=== PATIENT | female | born 1950 | race Caucasian/White ===

== ENCOUNTER → 2016-10-27 | Day surgery (SDC) | payer OTHER ==
[2016-10-20 09:53] VITALS: Ht 157.5 cm; Wt 74.1 kg
[~2016-10-27] VITALS: Ht 157.5 cm; Wt 74.1 kg
[~2016-10-27] MED LIST: AMOX875T PO; ASPI-435 PO; ATOR-22 PO; ATROPINE SULFATE 0.1 MG/ML 5ML SYR IV PRN; CARV6.25 PO; ENDOSCOPIC MARKER 5 ML SYR ONE; EpHEDrine SULFATE INJ 50 MG/ML AMP IV PRN; FRS/40 PO; KETAMINE HCL INJ 50 MG/ML 10 ML VIAL ONE; LIDOCAINE HCL 2% 2 ML VIAL (20MG/ML) ONE; LISI-789 PO; ONDANSETRON INJ 2 MG/ML 2 ML VIAL IV PRN; PHENYLEPHRINE 100MCG/ML 5ML SYR ONE; PROPOFOL IV EMULSION 10 MG/ML 20 ML VIAL IV ONE; SPR25 PO
--- NOTE | 2016-10-27 09:56 | Endo History and Physical ---
History & Physical Date of Service: Oct 27, 2016. Chief Complaint: SCREENING FOR COLON CANCER Referring Physician: DR. FERGUSON History of Present Illness Patient presents for colon cancer screening today. No symptoms at this time. No family history of colorectal cancer. Past Medical History High Cholesterol, Heart Disease, CHF, Hypertension, COPD Past Surgical History Hx Cardiac Surgery: Yes (HEART CATH X2, NO STENTS) Hx Internal Defibrillator: Yes (5 YEARS AGO) Hx Pacemaker: Yes (5 YEARS AGO) Hx Abdominal Surgery: Yes (APPY) Hx of Implantable Prosthesis: No Hx Post-Op Nausea and Vomiting: No Hx Cancer Surgery: No Hx Thoracic Surgery: No Hx Orthopedic: No Hx Urinary Tract Surgery: No Appendectomy Family History None Social History Smoking Status: Current Every Day Smoker Hx Substance Use: No Hx Alcohol Use: No Allergies Coded Allergies: No Known Allergies (Verified , 10/27/16) Current Medications Reported Home Medications Medications Dose Route/Sig Max Daily Dose Days Date Category Aspirin 81 (Aspirin) 81 Mg Tab 1 Tab PO AFTERNOON 10/20/16 Reported Spironolactone 25 Mg Tab 1 Tab PO QAM 10/20/16 Reported Zestril (Lisinopril) 2.5 Mg Tab 1 Tab PO QAM 10/20/16 Reported Coreg (Carvedilol) 6.25 Mg Tab 6.25 Mg PO BID 10/20/16 Reported Lasix (Furosemide) 40 Mg Tab 40 Mg PO QAM 10/20/16 Reported Lipitor (Atorvastatin Calcium) 20 Mg Tab 20 Mg PO AFTERNOON 08/02/13 Reported Vital Signs Weight (Kilograms): 74.09 Height (Feet): 5 Height (Inches): 2 Date Time Temp Pulse Resp B/P (MAP) Pulse Ox O2 Delivery O2 Flow Rate FiO2 10/27/16 09:40 36.8 76 16 155/75 (101) 96 Room Air Physical Exam General Appearance: no apparent distress Respiratory/Chest: Auscultation: breath sounds normal Cardiovascular: Heart Auscultation: RRR Abdomen: Inspection & Palpation: soft Assessment and Plan Patient for colonoscopy today for colon cancer screening. We have discussed the risks of the procedure to include bleeding, infection, perforation and missed colonic polyps.
--- NOTE | 2016-10-27 10:54 | Discharge Instructions ---
Endoscopy Patient Instructions Date / Procedure(s) Performed Oct 27, 2016. Colonoscopy Allergy Information Coded Allergies: No Known Allergies (Verified , 10/27/16) Discharge Date / Findings Oct 27, 2016. Multiple colon polyps Large colonic mass at the hepatic flexure, unable to remove due to size. Medication Instructions Stopped Medication(s): ASPIRIN LAST 10-26-16 Restart Stopped Medication(s): Reported Home Medications Medications Dose Route/Sig Max Daily Dose Days Date Category Aspirin 81 (Aspirin) 81 Mg Tab 1 Tab PO AFTERNOON 10/20/16 Reported Spironolactone 25 Mg Tab 1 Tab PO QAM 10/20/16 Reported Zestril (Lisinopril) 2.5 Mg Tab 1 Tab PO QAM 10/20/16 Reported Coreg (Carvedilol) 6.25 Mg Tab 6.25 Mg PO BID 10/20/16 Reported Lasix (Furosemide) 40 Mg Tab 40 Mg PO QAM 10/20/16 Reported Lipitor (Atorvastatin Calcium) 20 Mg Tab 20 Mg PO AFTERNOON 08/02/13 Reported Provider Instructions Activity Restrictions - No exercising or heavy lifting for 24 hours. - Do not drink alcohol the day of the procedure. - Do not drive a car or operate machinery until the day after the procedure. - Do not make any important decisions or sign important papers in 24 hours after the procedure. Following Day: - Return to full activity which may include returning to work/school. Diet Start your diet with liquids and light foods (jello, soup, juice, toast). Then eat your usual diet if not nauseated. Treatment For Common After Affects For mild abdominal pain, bloating, or excessive gas: - Rest - Eat lightly - Lie on right side Follow-Up Information Await pathology results CT of the abdomen and pelvis Labs to include blood count, comprehensive metabolic panel and CEA Referral to surgery to be arranged Anesthesia Information What You Should Know You have had a procedure that required some medicine to reduce anxiety and discomfort. This treatment is called moderate sedation. After receiving the treatment, you may be sleepy, but you will be able to breathe on your own. The effects of the treatment may last for several hours. Follow these instructions along with Activity/Diet recommendations noted above: * Do NOT do anything where dizziness or clumsiness would be dangerous. * Rest quietly at home today, then you can be up and about tomorrow. * Have a responsible person stay with you the rest of today. * You may have had an I.V. today. If so, you may take the dressing off later today. Recommendations Call your doctor if: * Trouble breathing * Continuous vomiting for more than 24 hours * Temperature above 101 degrees * Severe abdominal pain or bloating * Pain not relieved by pain medicine ordered * There is increased drainage or redness from any incision * A large amount of rectal bleeding greater than 2-3 tablespoons. (If you had a polyp/s removed or have hemorrhoids, a small amount of blood - from the rectum is to be expected.) * You have any unanswered questions or concerns. IN THE EVENT OF A SERIOUS EMERGENCY, GO TO THE NEAREST EMERGENCY ROOM Your discharge instructions were prepared by provider Dayanara Beltran. Patient Instructions Signature Page Zayda Curtis Patient (or Guardian) Signature/Date: I have read and understand the instructions given to me by my caregivers. Caregiver/RN/Doctor Signature/Date: The above-named patient and/or guardian has received patient instructions on this date. + Original Patient Signature Page (only) stays with chart. Please make copy for patient.
--- NOTE | 2016-10-27 11:01 | GI REPORT ---
Procedure Date: 10/27/2016 10:02 AM Procedure: Colonoscopy Indications: Screening for colorectal malignant neoplasm Medicines: Monitored Anesthesia Care Complications: No immediate complications. Estimated blood loss: Minimal. Estimated Blood Loss: Estimated blood loss was minimal. Procedure: Pre-Anesthesia Assessment: - Prior to the procedure, a History and Physical was performed, and patient medications, allergies and sensitivities were reviewed. The patient's tolerance of previous anesthesia was reviewed. - The risks and benefits of the procedure and the sedation options and risks were discussed with the patient. All questions were answered and informed consent was obtained. - Patient identification and proposed procedure were verified prior to the procedure by the physician, the nurse and the check and transfer beader. The procedure was verified in the procedure room. - Pre-procedure physical examination revealed no contraindications to sedation. - ASA Grade Assessment: IV - A patient with severe systemic disease that is a constant threat to life. - After reviewing the risks and benefits, the patient was deemed in satisfactory condition to undergo the procedure. - The anesthesia plan was to use monitored anesthesia care (MAC). - Immediately prior to administration of medications, the patient was re-assessed for adequacy to receive sedatives. - The heart rate, respiratory rate, oxygen saturations, blood pressure, adequacy of pulmonary ventilation, and response to care were monitored throughout the procedure. - The physical status of the patient was re-assessed after the procedure. After I obtained informed consent, the scope was passed under direct vision. Throughout the procedure, the patient's blood pressure, pulse, and oxygen saturations were monitored continuously. The Scope was introduced through the anus and advanced to the cecum, identified by appendiceal orifice and ileocecal valve. The colonoscopy was performed without difficulty. The patient tolerated the procedure well. The quality of the bowel preparation was good. Findings: The perianal and digital rectal examinations were normal. Pertinent negatives include normal sphincter tone. A 20 mm polyp was found in the cecum. The polyp was sessile. The polyp was removed with a saline injection-lift technique using a hot snare. The polyp was removed with a piecemeal technique using a hot snare. Resection and retrieval were complete. Coagulation for destruction of remaining portion of lesion using argon plasma at 1 liter/minute and 20 rodríguez was successful. Estimated blood loss was minimal. Two sessile polyps were found in the ascending colon. The polyps were 4 to 6 mm in size. These polyps were removed with a cold snare. Resection and retrieval were complete. Estimated blood loss was minimal. A frond-like/villous non-obstructing medium-sized mass was found at the hepatic flexure measuring about 30 to 35 mm. The mass was non-circumferential. No bleeding was present. I attempted to lift the lesion with 10 ml of saline. After injection, a large portion of the center did not raise suggesting invasion into the deeper layers. Biopsies were taken with a cold forceps for histology. Estimated blood loss was minimal. Area was tattooed with an injection of 3 mL of Spot (carbon black). Estimated blood loss was minimal. A 10 mm polyp was found in the descending colon. The polyp was semi-pedunculated. The polyp was removed with a hot snare. Resection and retrieval were complete. Estimated blood loss was minimal. Internal hemorrhoids were found during retroflexion. The hemorrhoids were moderate. The exam was otherwise without abnormality. Impression: - One 20 mm polyp in the cecum, removed using injection-lift and a hot snare and removed piecemeal using a hot snare. Resected and retrieved. Treated with argon plasma coagulation (APC). - Two 4 to 6 mm polyps in the ascending colon, removed with a cold snare. Resected and retrieved. - Likely malignant tumor at the hepatic flexure. Biopsied. Tattooed. - One 10 mm polyp in the descending colon, removed with a hot snare. Resected and retrieved. - Internal hemorrhoids. - The examination was otherwise normal. Recommendation: - Discharge patient to home (ambulatory). - Advance diet as tolerated today. - Refer to a surgeon at appointment to be scheduled. - Await pathology results. - Repeat colonoscopy in 1 year for surveillance. Dayanara Beltran D.O. Dayanara Beltran DO 10/27/2016 10:59:56 AM This report has been signed electronically. Note Initiated On: 10/27/2016 10:02 AM I attest to the content of the Intraoperative Record and orders documented therein, exceptions below
--- NOTE | 2016-10-27 11:03 | Anesthesiology Progress Note ---
Anesthesia Post Op Note Date & Time Oct 27, 2016 at 11:03 Vital Signs Pain Intensity: 0 Vital Signs Past 12 Hours Date Time Temp Pulse Resp B/P (MAP) Pulse Ox O2 Delivery O2 Flow Rate FiO2 10/27/16 10:50 70 20 109/43 (65) 98 Room Air 10/27/16 09:40 36.8 76 16 155/75 (101) 96 Room Air Notes Mental Status: alert / awake / arousable, participated in evaluation Pt Amnestic to Procedure: Yes Nausea / Vomiting: adequately controlled Pain: adequately controlled Airway Patency, RR, SpO2: stable & adequate BP & HR: stable & adequate Hydration State: stable & adequate Anesthetic Complications: no major complications apparent
[2016-10-27 11:20] VITALS: BP 130/68; PULSE 68; O2SAT 97
== END | disposition home or self-care (01) ==
LOC: C.GI 09:21
PROVIDERS: ATTEND Internal Medicine Gastroenterology
DX: Z12.11 Encounter for screening for malignant neoplasm of colon (principal); D12.2 Benign neoplasm of ascending colon; D12.0 Benign neoplasm of cecum; D12.4 Benign neoplasm of descending colon; K64.8 Other hemorrhoids; I11.0 Hypertensive heart disease with heart failure; I50.9 Heart failure, unspecified; E78.00 Pure hypercholesterolemia, unspecified; J44.9 Chronic obstructive pulmonary disease, unspecified; Z95.0 Presence of cardiac pacemaker; F17.200 Nicotine dependence, unspecified, uncomplicated; Z79.82 Long term (current) use of aspirin; Z79.899 Other long term (current) drug therapy

== ENCOUNTER 2021-11-01 05:45 | Inpatient (IN) ==
--- NOTE | 2021-10-15 10:02 | Anesthesiology Consultation ---
Date of Service October 15, 2021 Assessment & Plan (1) Encounter for pre-operative examination: - check BSG am DOS. - pacemaker: Medtronic. No pacer rep needed per Dr. Jean. - cardiology 10/07/21 [facility]: "...preoperative cardiology evaluation, requested by patient's PCP, Dr. Padgett and Dr. Carlton, Gen Surgery prior to undergoing laparoscopic, possibly open, hemicolectomy due to adenocarcinoma of the ascending colon. Surgery is scheduled for November 01 at [facility] with Dr. Carlton...Nonischemic cardiomyopathy EF 20-24% status post biventricular ICD (implantable cardioverter defibrillator) implant. Resolved most recent EF 55 to 59%...Chronic left bundle branch block...Nonobstructive coronary artery disease by cardiac catheterization in March 2013...Moderate AI...Patient presents today feeling well. She denies acute cardiac complaints. Remains active walking her dogs on a daily basis. No exertional chest pain or unusual shortness of breath. Taking medications as prescribed. No interim hospitalizations...Recent echo with preserved LVEF and moderate AI...pacemaker has likely about 4 months of battery longevity at this time, acceptable to proceed with surgery as scheduled. Will arrange monthly device interrogations at next visit in October. Standard pacemaker/ICD precautions should be taken in the OR. Acceptable to hold ASA in the perioperative setting, resuming post op when acceptable by surgical team. She should take carvedilol without interruption. Based on Revised GWENDOLYN criteria risk index, she is considered low risk, less than 1%, for perioperative cardiac complications. No further cardiac testing is warranted..." - COVID screening: Per soil conservation teacher on 10/15/2021: Travel screen negative, no known COVID-19 positive contacts or current COVID-19 related symptoms in past 2 weeks. Pt vaccinated. To surgeon's discretion if COVID preop testing needed. Chart Review Chart Review: Acceptable Risk for Surgery and Patient NOT seen in Pre Admission Testing History Surgery Operation Date: 11/01/21 09:05 Proposed Procedures p Laparoscopic, Possible Open Right Hemicolectony - Lc Carlton MD Height/Weight Height: 5 ft 1.5 in Weight: 71.214 kg Allergies Allergy/AdvReac Type Severity Reaction Status Date / Time No Known Allergies Allergy Unknown Verified 10/15/21 09:02 Medications Home Medications Medication Instructions Recorded Confirmed Last Taken alendronate 70 mg tablet 70 mg PO WK 12/18/20 10/15/21 09/23/21 aspirin 81 mg tablet,delayed 81 mg PO QAM 12/18/20 10/15/21 09/23/21 release atorvastatin 40 mg tablet 40 mg PO QAM 12/18/20 10/15/21 09/24/21 carvedilol 6.25 mg tablet 6.25 mg PO BID 12/18/20 10/15/21 09/24/21 cyanocobalamin (vitamin B-12) 1,000 mcg PO QAM 12/18/20 10/15/21 09/23/21 1,000 mcg tablet (Vitamin B-12) furosemide 40 mg tablet 40 mg PO QAM 12/18/20 10/15/21 09/23/21 lisinopril 2.5 mg tablet 2.5 mg PO QAM 12/18/20 10/15/21 09/24/21 metformin 1,000 mg tablet 1,000 mg PO BID 12/18/20 10/15/21 01/12/21 spironolactone 25 mg tablet 25 mg PO HS 12/18/20 10/15/21 01/12/21 ferrous sulfate 325 mg (65 mg 325 mg PO BID 09/20/21 10/15/21 09/23/21 iron) tablet (Iron (ferrous sulfate)) Past Medical History Medical History (Updated 10/15/21 @ 10:20 by Yoko Mcallister PA-C) Age related osteoporosis Aortic regurgitation moderate Diabetes NIDDM HTN (hypertension) Hypercholesteremia ICD (implantable cardioverter-defibrillator) in place Meditronic ICD placed 10/18/2013 @ [facility] Left bundle branch block LVH (left ventricular hypertrophy) severe Non-ischemic cardiomyopathy EF recovered to 55-59%, Medtronic ICD, follows with [facility] cardiology Past Family History Family History Other No family history of adverse response to anesthesia Past Surgical History Surgical History History of appendectomy History of cardiac cath (~04/01/13) @ [facility] Dr. Sidhu--no stents History of cataract surgery bilateral History of colonoscopy last 09/24/21 @ [facility] History of implantable cardioverter-defibrillator (ICD) placement (~10/18/13) @ [facility] [place] Social History Smoking Status: Current every day smoker tobacco type: cigarettes Smoking cigarettes per day: 0.5PPD/ADVISED NPO Do You Dip or Chew Tobacco: No Hx Alcohol Use: No Hx Substance Use: No substance use type: does not use Testing Laboratory Results 09/29/2021 WBC: 8 H&H: 11/35 Plt: 335 SODIUM: 139 POTASSIUM: 4.6 CHLORIDE: 103 CO2: 23 BUN: 14 CREATININE: 0.8 GLUCOSE: 207 Electrocardiogram Date: 10/07/21 Atrial sensed ventricular paced rhythm, rate 81 bpm Echocardiogram Date: 04/28/21 EF 55-59% Grade I diastolic dysfunction Severe cLVH Septal motion abnormal consistent with RV pacemaker Regional LV wall motion otherwise normal Aortic valve mildly calcified Moderate aortic valve regurgitation Mild tricuspid regurgitation Other Testing CT chest 10/01/21 Lobulated enlargement of the left adrenal gland unchanged from prior exams No evidence of metastatic disease
[2021-11-01] MEDS ORDERED: LR 15ML/HR IV SCH (06:00)
[2021-11-01] MEDS ORDERED: ENOXAPARIN INJ 30 MG/0.3 ML SYR SQ SCH (06:00)
[2021-11-01] MEDS ORDERED: ROCURONIUM BROMIDE 10 MG/ML 5 ML VIAL IV ONE ×6 (06:40→08:23)
[2021-11-01] MEDS ORDERED: DEXAMETHASONE SOD INJ 4 MG/ML VIAL ONE (06:40)
[2021-11-01] MEDS ORDERED: PROPOFOL IV EMULSION 10 MG/ML 20 ML VIAL IV ONE (06:40)
[2021-11-01] MEDS ORDERED: fentaNYL citrate 100 MCG/2 ML VIAL ONE ×2 (06:40→06:41)
[2021-11-01] MEDS ORDERED: ONDANSETRON INJ 2 MG/ML 2 ML VIAL ONE (06:40)
[2021-11-01] MEDS ORDERED: SUGAMMADEX SODIUM 200 MG/2 ML VIAL IV ONE (06:45)
--- NOTE | 2021-11-01 06:57 | History & Physical Report ---
Date of Service November 01, 2021 Assessment & Plan (1) Primary adenocarcinoma of ascending colon: Plan 71-year-old woman with hepatic flexure adenocarcinoma. We discussed the risks and benefits of a laparoscopic, possible open right colectomy. We discussed the postoperative course and recovery. All questions were answered, she is agreeable to proceed. Consent has been obtained. We will schedule this the earliest convenience. History of Present Illness Primary Care Provider: Archie Padgett DO 71-year-old woman with hepatic flexure adenocarcinoma noted on colonoscopy. She has an extensive cardiac history and has a pacemaker. She was seen cardiology and has been cleared for surgery. Allergies Allergy/AdvReac Type Severity Reaction Status Date / Time No Known Allergies Allergy Unknown Verified 11/01/21 06:04 Home Medications Medication Instructions Recorded Confirmed Type alendronate 70 mg tablet 70 mg PO WK 12/18/20 11/01/21 History aspirin 81 mg tablet,delayed 81 mg PO QAM 12/18/20 11/01/21 History release atorvastatin 40 mg tablet 40 mg PO QAM 12/18/20 11/01/21 History carvedilol 6.25 mg tablet 6.25 mg PO BID 12/18/20 11/01/21 History cyanocobalamin (vitamin B-12) 1,000 mcg PO QAM 12/18/20 11/01/21 History 1,000 mcg tablet (Vitamin B-12) furosemide 40 mg tablet 40 mg PO QAM 12/18/20 11/01/21 History lisinopril 2.5 mg tablet 2.5 mg PO QAM 12/18/20 11/01/21 History metformin 1,000 mg tablet 1,000 mg PO BID 12/18/20 11/01/21 History spironolactone 25 mg tablet 25 mg PO HS 12/18/20 11/01/21 History ferrous sulfate 325 mg (65 mg 325 mg PO BID 09/20/21 11/01/21 History iron) tablet (Iron (ferrous sulfate)) Past Med/Surg History Medical History Age related osteoporosis Aortic regurgitation moderate Diabetes NIDDM HTN (hypertension) Hypercholesteremia ICD (implantable cardioverter-defibrillator) in place [employer] [facility] ICD placed 10/18/2013 @ [facility] [place] Left bundle branch block LVH (left ventricular hypertrophy) severe Non-ischemic cardiomyopathy EF recovered to 55-59%, Medtronic ICD, follows with [facility] cardiology Surgical History History of appendectomy History of cardiac cath (~04/01/13) @ [facility] Dr. Sidhu--no stents History of cataract surgery bilateral History of colonoscopy last 09/24/21 @ [facility] History of implantable cardioverter-defibrillator (ICD) placement (~10/18/13) @ [facility] [place] Family History Other No family history of adverse response to anesthesia Social History Smoking Status: Current every day smoker Cigarettes Per Day: 0.5PPD/ADVISED NPO; Second Hand Exposure: No; Do You Dip or Chew Tobacco: No; Tobacco Cessation Education Requested by Patient: No Hx Alcohol Use: No Hx Substance Use: No Preferred Language: Tamazight Communication Ability: Effective Account Contact Associate Required: No Beliefs That Will Affect Care: None Current Living Situation: Alone Other Information That Helps Us Care for You: No Feels Safe at Home: Yes Safety Concerns: Feels Safe At This Time Assistive Devices: Glasses Review of Systems Review of Systems: All systems reviewed & are unremarkable except as noted in HPI & below Physical Exam Constitutional: WD/WN, vitals as above Neck: trachea midline, no thyromegaly Respiratory: normal respiratory effort, lungs clear to auscultation Cardiovascular: RRR, no murmur, no edema Gastrointestinal (Abdomen): normal bowel sounds, soft, nontender, no hepatosplenomegaly Musculoskeletal: no cyanosis or clubbing, extremities motor strength 5/5 Skin: no rashes, warm and dry Psychiatric: A+Ox3, euthymic affect Results & Data Results & Data ([facility]) Vital Signs (Past 12 Hours) Vital Signs Temp Pulse Resp BP Pulse Ox O2 Del Method 11/01/21 06:09 37.1 C 80 20 127/58 L 96 Room Air
[2021-11-01] MEDS ORDERED: BUPIVACAINE 0.5 % 5 MG/1 ML MPF 30ML VIAL ONE (07:00)
[2021-11-01] MEDS: ceFAZolin 2000MG 2,000 MG/15 ML SYR IV SCH ×2 (07:23→07:25)
[2021-11-01] MEDS ORDERED: ONDANSETRON INJ 2 MG/ML 2 ML VIAL IV PRN ×2 (07:56→11:13)
[2021-11-01] MEDS ORDERED: ATROPINE SULFATE 0.1 MG/ML 10ML SYR IV PRN (07:56)
[2021-11-01] MEDS ORDERED: DEXAMETHASONE SOD INJ 4 MG/ML VIAL IV PRN (07:56)
[2021-11-01] MEDS ORDERED: ePHEDrine sulfate 50 MG/ML AMP IV PRN (07:56)
[2021-11-01] MEDS ORDERED: HYDROmorphone INJ 2 MG/ML SYR/VIAL ONE (08:02)
--- NOTE | 2021-11-01 09:46 | Post Operative Brief Note ---
Immediate Post Op Note v1 Date of Surgery November 01, 2021 Pre & Post Diagnosis Operation Date: 11/01/21 07:15 Pre-Op Diagnosis: Primary Adenocarcinoma of Ascending Colon Post-Op Diagnosis: Primary Adenocarcinoma of Ascending Colon I identified the patient and participated in the time-out.: Yes Procedure Operation Date: 11/01/21 07:15 Actual Procedures p Right Laparoscopic Hemicolectomy(Right) - Lc Carlton MD Surgeon Lc Carlton MD Unit Clerk HUONG Aviles assisted with tissue retraction, camera op, closure Estimated Blood Loss 20 Findings Consistent with Post-Op Diagnosis Proximal and distal tattoo noted in hepatic flexure. Extended right hemicolectomy completed for adequate distal margin.
--- NOTE | 2021-11-01 09:56 | Operative Report ---
Post Operative Report Pre & Post Diagnosis Operation Date: 11/01/21 07:15 Pre-Op Diagnosis: Primary Adenocarcinoma of Ascending Colon Post-Op Diagnosis: Primary Adenocarcinoma of Ascending Colon I identified the patient and participated in the time-out.: Yes Procedure Operation Date: 11/01/21 07:15 Actual Procedures p Right Laparoscopic Hemicolectomy(Right) - Lc Carlton MD Surgeon Lc Carlton MD [employer] Knitting Machine Operator HUONG Aviles assisted with tissue retraction, camera op, closure Estimated Blood Loss 20 Findings Consistent with Post-Op Diagnosis Proximal and distal tattoo noted in the hepatic flexure, extended right hemicolectomy completed for adequate distal margin. Specimens Right colon, hepatic flexure, proximal transverse colon Drains None Anesthesia Type General Complications No immediate complications Description of Procedure The patient was taken to the operating room, placed supine on the operating table. A timeout is performed, perioperative antibiotics were administered, SCD boots were placed. After adequate anesthesia and analgesia was obtained, Crooks catheter was placed, and the patient was prepped and draped in the normal sterile fashion. A 1 cm incision was made in the upper midline above the umbilicus and carried down to the fascia. The fascia was grasped with a trach hook, and a varies needle was used to enter the abdominal cavity. The abdomen was insufflated to pressure 15 mmHg, and a 11 mm trocar was placed in this location. A 10 mm 30 degree laparoscope was placed to the abdominal cavity. The abdomen surveyed. Note was made of the proximal tattoo in the ascending colon. A 12 mm trocar was placed in the left lower quadrant, a 5 mm trocar was placed in the right lower quadrant, and a 5 mm trocar was placed in the left upper quadrant. The patient was airplane to the left. Further exploration of the abdomen yielded no evidence of liver metastases or omental seeding or metastases. The colon was grasped and retracted. We noted the distal tattoo in the proximal transverse colon just distal to the hepatic flexure. Based on this, the decision was made to proceed with a extended right hemicolectomy for adequate margin. The colon was elevated exposing the ileocolic/right colic artery pedicle going up to the right and ascending colon. This pedicle was dissected free circumferentially at its base with the harmonic scalpel. The pedicle was taken with a vascular load of the Endo GWEN stapler. Further dissection was completed with the harmonic scalpel in a traction countertraction technique along the bloodless plane of the mesocolon. This dissection was carried up to a spot on the terminal ileum and to a spot on the transverse colon near the middle colic artery pedicle. The duodenum was noted and was kept free from the dissection specimen as was the right kidney. Attention was then turned to the lateral attachments of the right colon. The right colon was retracted medially and these attachments were taken down with harmonic scalpel, freeing up the terminal ileum, right colon, and hepatic flexure. Further dissection of the transverse colon off of the omentum was completed with harmonic scalpel, using the harmonic scalpel to enter the lesser sac. This freed up the transverse colon as well back towards the hepatic flexure. Once the colon was completely mobilized, inspection yielded no evidence of bleeding. A small midline incision was made extending the 11 mm port site with 15 blade scalpel. This carried down to the fascia. The fascia was opened to its fullest extent. A wound protector was placed in this location. The completely mobilized right colon was brought up through this incision and out onto the abdominal wall. The mass was palpable distal to the hepatic flexure. The terminal ileum was transected with a bowel load of the GWEN stapler. Due to the location of the mass, a further amount of transverse colon mesentery was taken with combination of the harmonic scalpel and blunt dissection. We entered the middle colic artery distribution at this point, and larger vessels were clamped and tied. We attain the area of the transverse colon the provided adequate margin, and the transverse colon was transected with a GWEN stapler at this location. The specimen was removed from the body and sent off the table to pathology. A [id number], functional end-to-end anastomosis was created between the terminal ileum and the transverse colon. The common channel was closed in 2 layers. An inner mucosal layer of running 3-0 Vicryl, and an outer Lembert style interrupted layer of 3-0 silk. A crotch stitch was placed with 3-0 silk. The mesenteric defect was closed with a running 3-0 Vicryl suture. The anastomosis was reduced back into the abdominal cavity. Hemostasis was excellent. The abdomen was copiously irrigated and suctioned free and again hemostasis was excellent. All trochars were removed. The fascia in the midline incision was closed with a running 1 PDS suture. The skin in the midline incision and the port sites was closed with 4-0 Monocryl. Dermabond was applied. She tolerated the procedure without complication, was transferred in stable condition to the PACU. All instrument, needle, and sponge counts were correct at the end of the case. My rehabilitation assistant was necessary throughout the procedure for tissue retraction, possible camera operation, and closure of the wounds. I understand that section 1842(b)(7)(D) of the Social Security act generally prohibits Medicare physician fee schedule payment for the services of assistants at surgery in teaching hospitals when qualified residents are available to furnish such services. I certify that the services for which payment is claimed were medically necessary and that no qualified resident was available to perform the services. I further understand that these services are subject to postpayment review by the Medicare carrier. I attest to the content of the Intraoperative Record and any orders documented therein. Any exceptions are noted below.
[2021-11-01] MEDS: HYDROmorphone INJ 2 MG/ML SYR/VIAL IV PRN ×2 (10:13→10:18)
--- NOTE | 2021-11-01 11:06 | Anesthesiology Progress Note ---
Date of Service November 01, 2021 Anesthesia Post Procedure Vital Signs Vital Signs: Temp Pulse Resp BP Pulse Ox O2 Del Method O2 Flow Rate 11/01/21 11:00 62 14 148/68 H 90 Oxymask 7 11/01/21 10:50 36.4 C L 67 11 L 131/83 91 Oxymask 5 11/01/21 10:40 84 14 154/66 H 93 Oxymask 9 11/01/21 10:20 84 15 145/68 H 92 Oxymask 9 11/01/21 10:30 76 15 152/73 H 94 Oxymask 9 11/01/21 10:10 91 H 14 158/77 H 95 Oxymask 9 11/01/21 10:03 36.3 C L 90 18 160/80 H 91 Oxymask 11/01/21 06:09 37.1 C 80 20 127/58 L 96 Room Air Pain Intensity Abdomen: Pain Intensity: 5 Transfer of Care Handoff Completed per policy Notes Mental Status: alert / awake / arousable and participated in evaluation Patient Amnestic to Procedure: Yes Nausea / Vomiting: adequately controlled Pain: adequately controlled Airway Patency, RR, SpO2: stable & adequate BP & HR: stable & adequate Hydration State: stable & adequate Anesthetic Complications: no major complications apparent and Pt Satisfied with anesthetic care
[2021-11-01] MEDS ORDERED: KETOROLAC 30 MG/ML VIAL IV PRN (11:13)
[2021-11-01] MEDS ORDERED: LACTATED RINGER'S 1,000 ML IV SCH (11:13)
[2021-11-01] MEDS ORDERED: PROMETHAZINE HCL 12.5 MG in SODIUM CHLORIDE 0.9% 50 ML IV PRN (11:13)
[2021-11-01] MEDS ORDERED: MoRPHine SULFATE 2 MG/ML CARP IV PRN (11:13)
--- NOTE | 2021-11-01 12:26 | Hospitalist Consultation ---
Date of Consultation November 01, 2021 Assessment & Plan (1) Primary adenocarcinoma of ascending colon: - S/p R hemicolectomy for colon cancer by Dr. Carlton today - Pain management, bowel regimen and DVT ppx per the primary team - PT/OT consults - Follow am CBC to monitor for acute blood loss (2) Non-ischemic cardiomyopathy: (3) Hypercholesteremia: (4) Aortic regurgitation: (5) ICD (implantable cardioverter-defibrillator) in place: (6) Left bundle branch block: (7) HTN (hypertension): - Monitor on tele - Last echo was reviewed from 04/2021 showing LV wall thickness, right ventricular pacemaker, LV EF 55-59%, grade 1 diastolic dysfunction, anortic valve mildly calcified, moderate aortic insufficiency -Pacemaker/ICD in place with approximately 3-4 months of battery life left as per cardiology - Continue carvedilol, lisinopril, spironolactone, furosemide, holding aspirin prior to surgery, may resume - Cont statin (8) Diabetes: - Hold metformin 1000 mg BID while inpatient, cover with ISS with accuchecks achs - Unknown last a1c, check with am labs DVT ppx: teds, scds, lovenox subq CODE: Full code Dispo: From home, discharge per the primary team Thank you for involving us in the care of Mrs. Curtis. Please do not hesitate to call with questions or concerns. At this time medicine service will follow along. Supervising Physician Co-Signing Physician Notes Patient was seen and examined independently in room E316. Chart reviewed. Case discussed with Rochelle BORJA and agree with the documentation above. In summary, this is a 71 year old female with PMH as above admitted under surgical service after elective right hemicolectomy for hepatic flexure adenocarcinoma. Denies any issues. Denies any CP, SOB, N/V, pain. On exam, vitals stable, AAO, chest clear, heart sounds normal. Abdomen soft, NT, ND, incision sites clean dry intact, bowel sound present. LE with SCDs. Agree with A/P above. Diet, DVT ppx, pain management and activities per primary team. Chronic medical conditions stable. Hold metformin and continue SSI. Labs in am. Rest as per the note above. History of Present Illness Reason for Consultation: Medical management Requesting Physician: Dr. Carlton Attending Physician: Lc Carlton MD History of Present Illness This is a 71 yo F with PMhx of CAD, s/p nonischemic cardiomyopathy, resolved with EF of 50 to 59%, chronic LBBB, CAD, moderate aortic insufficiency, ICD/pacemaker in situ, HLD, current tobacco user with 0.5 ppd. She was seen in the PACU after having surgery. She is awake and able to answer all my questions although is still slightly sleepy. She denies any acute pain or discomfort. Her last bowel movement was this morning and had loose stools all day yesterday due to MiraLAX prep. She lives at home by herself, her son and [id number] are down from [place] currently and plan to help her at home with recovery. She is diabetic and has been taking metformin at home. She denies any nausea or vomiting today, has not trialed anything to eat or drink yet. Allergies Allergy/AdvReac Type Severity Reaction Status Date / Time No Known Allergies Allergy Unknown Verified 11/01/21 06:04 Home Medications Medication Instructions Recorded Confirmed Type alendronate 70 mg tablet 70 mg PO WK 12/18/20 11/01/21 History aspirin 81 mg tablet,delayed 81 mg PO QAM 12/18/20 11/01/21 History release atorvastatin 40 mg tablet 40 mg PO QAM 12/18/20 11/01/21 History carvedilol 6.25 mg tablet 6.25 mg PO BID 12/18/20 11/01/21 History cyanocobalamin (vitamin B-12) 1,000 mcg PO QAM 12/18/20 11/01/21 History 1,000 mcg tablet (Vitamin B-12) furosemide 40 mg tablet 40 mg PO QAM 12/18/20 11/01/21 History lisinopril 2.5 mg tablet 2.5 mg PO QAM 12/18/20 11/01/21 History metformin 1,000 mg tablet 1,000 mg PO BID 12/18/20 11/01/21 History spironolactone 25 mg tablet 25 mg PO HS 12/18/20 11/01/21 History ferrous sulfate 325 mg (65 mg 325 mg PO BID 09/20/21 11/01/21 History iron) tablet (Iron (ferrous sulfate)) Patient History Medical History (Updated 11/01/21 @ 12:17 by Rochelle Delgado PA-C) Age related osteoporosis Aortic regurgitation moderate Diabetes NIDDM HTN (hypertension) Hypercholesteremia ICD (implantable cardioverter-defibrillator) in place Meditronic ICD placed 10/18/2013 @ [facility] Left bundle branch block LVH (left ventricular hypertrophy) severe Non-ischemic cardiomyopathy EF recovered to 55-59%, Medtronic ICD, follows with [facility] cardiology Surgical History History of appendectomy History of cardiac cath (~04/01/13) @ [facility] Dr. Sidhu--no stents History of cataract surgery bilateral History of colonoscopy last 09/24/21 @ [facility] History of implantable cardioverter-defibrillator (ICD) placement (~10/18/13) @ [facility] Family History Other No family history of adverse response to anesthesia Social History Smoking Status: Current every day smoker Cigarettes Per Day: 0.5PPD/ADVISED NPO; Second Hand Exposure: No; Do You Dip or Chew Tobacco: No; Tobacco Cessation Education Requested by Patient: No Hx Alcohol Use: No Hx Substance Use: No Preferred Language: Colombian Communication Ability: Effective Coding Coordinator Required: No Beliefs That Will Affect Care: None Current Living Situation: Alone Other Information That Helps Us Care for You: No Feels Safe at Home: Yes Safety Concerns: Feels Safe At This Time Assistive Devices: Glasses Review of Systems Review of Systems: Constitutional: No fever, sweats or chills Eyes: No diplopia, no worsening or blurred vision ENT: normal hearing, no trouble swallowing Respiratory: No cough, sputum, dyspnea at rest or on exertion Cardiovascular: No chest pain, tightness or palpitations Abdomen: No pain, nausea, vomiting, diarrhea or constipation Musculoskeletal: No joint pain, calf pain, swelling Neurologic: No weakness, numbness/tingling, or balance problems Psychiatric: No anxiety or depression Skin: No rash or itch Physical Exam Physical Exam: General: awake, alert, no apparent distress Head: Normocephalic, atraumatic ENT: PERRL, EOMI, no pharyngeal exudate, mucous membranes moist Chest: Clear to auscultation, on room air, no adventitious breath sounds Cardiac: Regular rate and rhythm, no murmur, no JVD, normal peripheral pulses, good capillary refill Abdominal: Hypoactive BS x 4 quadrants, multiple laparoscopic incisions over the abdomen which are closed, no surrounding erythema, abdomen mildly bloated status post surgery, soft, nontender to palpation, no rebound or guarding Extremities: Normal inspection, no peripheral edema or erythema, calfs nontender to palpation Psych: Normal mood and affect Neuro: AAO x 3, strength intact bilaterally, able to move all extremities without difficulty, no gross motor deficits, speech is clear, no peripheral sensory deficits Results & Data Results & Data ([facility]) Vital Signs (Past 12 Hours) Vital Signs Temp Pulse Resp BP Pulse Ox O2 Del Method O2 Flow Rate 11/01/21 12:00 82 13 141/65 H 93 Nasal Cannula 4 11/01/21 11:30 73 10 L 123/76 92 Nasal Cannula 4 11/01/21 11:00 62 14 148/68 H 90 Oxymask 7 11/01/21 10:50 36.4 C L 67 11 L 131/83 91 Oxymask 5 11/01/21 10:40 84 14 154/66 H 93 Oxymask 9 11/01/21 10:20 84 15 145/68 H 92 Oxymask 9 11/01/21 10:30 76 15 152/73 H 94 Oxymask 9 11/01/21 10:10 91 H 14 158/77 H 95 Oxymask 9 11/01/21 10:03 36.3 C L 90 18 160/80 H 91 Oxymask 5 11/01/21 06:09 37.1 C 80 20 127/58 L 96 Room Air Laboratory Results 11/01/21 11/01/21 11/01/21 10:56 06:15 06:05 POC Glucose 201 H 135 H SARS-CoV-2, RNA, NAAT Blood Type A Positive Antibody Screen NEGATIVE 11/01/21 05:55 POC Glucose SARS-CoV-2, RNA, NAAT NEGATIVE Blood Type Antibody Screen
[2021-11-01] MEDS ORDERED: ACETAMINOPHEN 1000 MG/100 ML IV IV SCH (14:00)
[2021-11-01] MEDS ORDERED: DEXTROSE 50% 50 ML SYRINGE IV PRN (14:53)
[2021-11-01] MEDS ORDERED: GLUCAGON FOR INJ 1 MG VIAL SQ PRN (14:53)
[2021-11-01] MEDS ORDERED: GLUCOSE 40% GEL 15 GM TUBE PO PRN (14:53)
[2021-11-01] MEDS ORDERED: GLUCOSE 10 TAB/TUBE PO PRN (14:53)
[2021-11-01] MEDS ORDERED: CARBOHYDRATES FOR HYPOGLYCEMIA PO PRN (14:53)
[2021-11-01] MEDS: ACETAMINOPHEN 1,000 MG/100 ML VIAL IV SCH ×2 (15:05→21:50)
[2021-11-01] MEDS: INSULIN ASPART PER UNIT SC SCH ×2 (17:52→20:58)
[2021-11-01] MEDS: carvediloL 6.25 MG TAB PO SCH (20:54)
[2021-11-01] MEDS: FERROUS SULFATE 325 MG TAB PO SCH (20:54)
[2021-11-01] MEDS: SPIRONOLACTONE 25 MG TAB PO SCH (20:54)
[2021-11-02] MEDS: ACETAMINOPHEN 1,000 MG/100 ML VIAL IV SCH ×3 (06:04→21:59)
[2021-11-02] MEDS: ENOXAPARIN INJ 30 MG/0.3 ML SYR SQ SCH (06:05)
[2021-11-02 06:47] LABS: Basophils # (auto) 0.04 K/uL (0-0.2); Basophils % (auto) 0.5 %; Eosinophils # (auto) 0.01 K/uL (0-0.50); Eosinophils % (auto) 0.1 %; Hematocrit (blood only) 27.2 % (34.1-44.9); Hemoglobin 9.1 g/dl (12.0-16.0); Immature Granulocytes # (auto) 0.02 K/uL (0.00-0.02); Immature Granulocytes % (auto) 0.2 %; Lymphocytes # (auto) 1.75 K/uL (1.2-3.4); Lymphocytes % (auto) 20.2 %; Mean Corpuscular Hemoglobin 29.8 pg (25.0-34.0); Mean Corpuscular Hgb Conc 33.5 g/dL (32.0-36.0); Mean Corpuscular Volume 89.2 fL (80.0-100.0); Mean Platelet Volume 10.7 fL (9.4-12.3); Monocytes % (auto) 10.4 %; Neutrophils # (auto) 5.95 K/uL (1.4-6.5); Neutrophils % (auto) 68.6 %; Platelet Count 299 K/uL (130-400); RDW Coefficient of Variation 15.3 % (11.5-14.5); Red Blood Count 3.05 M/uL (3.93-5.22); White Blood Count 8.67 K/ul (4.8-10.8)
[2021-11-02 07:08] LABS: Albumin Globulin Ratio 1.5 (0.9-2); Albumin Level 3.3 gm/dl (3.4-5.0); BUN Creatinine Ratio 14.7 (10-20); Bilirubin,Total 0.3 mg/dl (0.2-1.0); Calcium 8.7 mg/dl (8.5-10.1); Creatinine Clr Calc Pharmacy 60.7 ml/min; Est GFR (African American) 91.7 ml/min; Est GFR (Non-African American) 79.1 ml/min; Globulin 2.2 gm/dl (2.5-4.0); Potassium 3.6 mmol/L (3.5-5.1); Total Protein 5.5 gm/dl (6.0-8.3)
[2021-11-02 07:29] LABS: Estimated Average Glucose 137 mg/dl; Hemoglobin A1C 6.4 % (4.5-5.6)
[2021-11-02] MEDS: ASPIRIN 81 MG ECTAB PO SCH (08:27)
[2021-11-02] MEDS: FUROSEMIDE 40 MG TAB PO SCH (08:27)
[2021-11-02] MEDS: lisinopril 2.5 MG TAB PO SCH (08:27)
[2021-11-02] MEDS: CYANOCOBALAMIN (B-12) 500 MCG TABLET PO SCH (08:27)
[2021-11-02] MEDS: carvediloL 6.25 MG TAB PO SCH ×2 (08:27→20:23)
[2021-11-02] MEDS: ATORVASTATIN 40 MG TAB PO SCH (08:27)
[2021-11-02] MEDS: FERROUS SULFATE 325 MG TAB PO SCH ×2 (08:27→20:23)
[2021-11-02] MEDS: INSULIN ASPART PER UNIT SC SCH ×4 (08:31→20:57)
--- NOTE | 2021-11-02 10:01 | Hospitalist Progress Note ---
Date of Service November 02, 2021 Assessment & Plan (1) Primary adenocarcinoma of ascending colon: Plan: S/p R hemicolectomy for colon cancer by Dr. Carlton today Pain management, bowel regimen and DVT ppx per the primary team PT/OT consults Follow am CBC to monitor for acute blood loss Anemia pt with anemia at baseline baseline hgb 10-11 hgb 9.1 today minimal blood loss during surgery, 20ml slightly worsened anemia likely dilutional chronic anemia likely in setting of colon mass (2) Non-ischemic cardiomyopathy: (3) Hypercholesteremia: (4) Aortic regurgitation: (5) ICD (implantable cardioverter-defibrillator) in place: (6) Left bundle branch block: (7) HTN (hypertension): Plan: Last echo was reviewed from 04/2021 showing LV wall thickness, right ventricular pacemaker, LV EF 55-59%, grade 1 diastolic dysfunction, anortic valve mildly calcified, moderate aortic insufficiency Pacemaker/ICD in place with approximately 3-4 months of battery life left as per cardiology Continue carvedilol, lisinopril, spironolactone, furosemide, ASA Cont statin K 3.6 today, will give 40meq KCL pt euvolemic, monitor daily weights (8) Diabetes: Plan: Hold metformin 1000 mg BID while inpatient, cover with ISS with accuchecks achs A1C 6.4, BSG 124, stable, monitor DVT ppx: Lovenox subq CODE: Full code Dispo: From home, discharge per the primary team Thank you for this consultation. We will follow the patient with you during their hospital stay. You can reach a member of the [facility] Hospitalist Team 05/09 via hospitalist role on tiger text. Pt was seen and examined in collaboration with Dr. Vargas, please see addendum Admission and Anticipated Discharge Date Admission Date: November 01, 2021 Supervising Physician Co-Signing Physician Notes Attending addendum: The patient was seen and examined in medical floor She is a status post right hemicolectomy Minimal abdominal discomfort but denies any other significant symptoms On examination Lying in bed Hemodynamically stable Chest-clear to auscultate bilaterally Heart-S1, S2, regular Abdomen-tender right quadrant, bowel sound present Extremities-negative for any edema Her labs, medications and imaging studies reviewed She is a status post right laparoscopic hemicolectomy and remains medically stable Agree with assessment and plan as outlined above by Katie Vargas Subjective Patient was seen and examined in room 316. Follow-up right hemicolectomy secondary to adenocarcinoma. She feels well this morning. She had Crooks catheter removed. Denies abdominal pain. She denies fever, chills, sweats, lightheadedness, chest pain, shortness breath, cough, nausea, vomiting, abdominal pain. She has not yet urinated since catheter has been removed. She does admit to, "bowels rumbling," but has not yet passed flatus. Tolerating liquid diet. Review of Systems Review of Systems: All systems reviewed & are unremarkable except as noted in HPI & below Physical Exam Physical Exam: Gen: WD/WN, NAD, A&O x3, F, lying in bd HEENT: Normocephalic, atraumatic, conjunctivae moist, sclerae anicteric, mucous membranes moist. Lung: Clear to Auscultation bilaterally, no wheezes/rales/rhonchi Heart: Regular rate, regular rhythm, 1/6 AGNES cardiac apex, no rubs, or gallops Abdomen: Soft, NT, ND +BS tinkling x 4, abd incision x 4 intact, no erythema Extremities: No edema Skin: Warm, no rash, negative turgor. Results & Data Results & Data ([facility]) Vital Signs (Past 12 Hours) Vital Signs Temp Pulse Pulse Resp BP BP Pulse Ox 11/02/21 08:15 36.7 C 72 16 129/74 93 11/02/21 07:20 11/02/21 03:09 37.0 C 70 16 120/71 98 11/01/21 22:29 37.2 C 70 18 132/77 97 O2 Del Method O2 Flow Rate 11/02/21 08:15 Room Air 11/02/21 07:20 Room Air 11/02/21 03:09 Nasal Cannula 1.5 11/01/21 22:29 Laboratory Results Short CBC 11/02/21 Range/Units 06:17 WBC 8.67 (4.8-10.8) K/ul Hgb 9.1 L (12.0-16.0) g/dl Hct 27.2 L (34.1-44.9) % Plt Count 299 (130-400) K/uL BMP 11/02/21 06:17 Sodium 137 Potassium 3.6 Chloride 107 Carbon Dioxide 24 BUN 11 Creatinine 0.75 Glucose 120 H Calcium 8.7 Liver Function 11/02/21 Range/Units 06:17 Total Bilirubin 0.3 (0.2-1.0) mg/dl AST 11 L (13-39) U/L ALT 11 (7-52) U/L Alkaline Phosphatase 60 (34-104) U/L Albumin 3.3 L (3.4-5.0) gm/dl Medications Administered Current Inpatient Medications Aspirin (Aspirin 81 Mg Ectab) 81 mg PO QAM [facility] Stop: 12/02/21 08:59 Last Admin: 11/02/21 08:27 Dose: 81 mg Atorvastatin Calcium (Atorvastatin 40 Mg Tab) 40 mg PO QAM [facility] Stop: 12/02/21 08:59 Last Admin: 11/02/21 08:27 Dose: 40 mg Carvedilol (Carvedilol 6.25 Mg Tab) 6.25 mg PO BID ARCHIE Stop: 12/01/21 20:59 Last Admin: 11/02/21 08:27 Dose: 6.25 mg Cyanocobalamin (Cyanocobalamin (B-12) 500 Mcg Tablet) 1,000 mcg PO QAM [facility]CH[facility] Stop: 12/02/21 08:59 Last Admin: 11/02/21 08:27 Dose: 1,000 mcg Dextrose (Dextrose 50% 50 Ml Syringe) 25 - 50 ml IV UD PRN; Protocol PRN Reason: Hypoglycemia Protocol Stop: 12/01/21 14:52 Enoxaparin Sodium (Enoxaparin Inj 30 Mg/0.3 Ml Syr) 30 mg SQ Q24H ARCHIE Stop: 12/02/21 06:59 Last Admin: 11/02/21 06:05 Dose: 30 mg Ferrous Sulfate (Ferrous Sulfate 325 Mg Tab) 325 mg PO BID RACHIE Stop: 12/01/21 20:59 Last Admin: 11/02/21 08:27 Dose: 325 mg Furosemide (Furosemide 40 Mg Tab) 40 mg PO QAM ARCHIE Stop: 12/02/21 08:59 Last Admin: 11/02/21 08:27 Dose: 40 mg Glucagon (Glucagon For Inj 1 Mg Vial) 1 mg SQ UD PRN; Protocol PRN Reason: Hypoglycemia Protocol Stop: 12/01/21 14:52 Glucose (Glucose 40% Gel 15 Gm Tube) 15 - 30 gm PO UD PRN; Protocol PRN Reason: Hypoglycemia Protocol Stop: 12/01/21 14:52 Glucose (Glucose 10 Tab/Tube) 4 - 8 tab PO UD PRN; Protocol PRN Reason: Hypoglycemia Treatment Stop: 12/01/21 14:52 Promethazine HCl 12.5 mg/ (Sodium Chloride) 50.5 mls @ 204 mls/hr IV Q6H PRN PRN Reason: Nausea And Vomiting Stop: 12/01/21 11:12 Acetaminophen (Ofirmev) 1,000 mg in 100 mls @ 400 mls/hr IV Q8H ARCHIE Stop: 11/04/21 13:59 Last Infusion: 11/02/21 06:19 Dose: Infused Insulin Aspart (Insulin Aspart Per Unit) 0 units SC ACHS [facility] Stop: 12/01/21 16:29 Last Admin: 11/02/21 08:31 Dose: 2 units Ketorolac Tromethamine (Ketorolac 30 Mg/Ml Vial) 15 mg IV Q6H PRN PRN Reason: Pain & Pre PT Stop: 11/06/21 11:12 Last Admin: 11/02/21 01:03 Dose: 15 mg Lisinopril (Lisinopril 2.5 Mg Tab) 2.5 mg PO QAM [facility] Stop: 12/02/21 08:59 Last Admin: 11/02/21 08:27 Dose: 2.5 mg Miscellaneous (Carbohydrates For Hypoglycemia ) 15 - 30 gm PO UD PRN PRN Reason: Hypoglycemia Protocol Stop: 12/01/21 14:52 Morphine Sulfate (Morphine Sulfate 2 Mg/Ml Carp) 2 mg IV Q3H PRN PRN Reason: Pain (1,2,3,4,5) & Pre PT Stop: 11/15/21 11:12 Ondansetron HCl (Ondansetron Inj 2 Mg/Ml 2 Ml Vial) 4 mg IV Q4H PRN PRN Reason: Nausea And Vomiting Stop: 12/01/21 11:12 Spironolactone (Spironolactone 25 Mg Tab) 25 mg PO HS [facility] Stop: 12/01/21 20:59 Last Admin: 11/01/21 20:54 Dose: 25 mg
[2021-11-02] MEDS ORDERED: POTASSIUM CHLORIDE CRTAB 20 MEQ TABCR PO STA (10:15)
[2021-11-02] MEDS ORDERED: KETOROLAC TROMETHAMINE 15 MG/ML VIAL IV PRN (10:45)
--- NOTE | 2021-11-02 11:39 | Surgery Progress Note ---
Date of Service November 02, 2021 Assessment & Plan (1) Primary adenocarcinoma of ascending colon: Plan POD #1, doing well Clear liquid diet, awaiting flatus to advance Remove Crooks catheter Out of bed, ambulate, aggressive pulmonary toilet DVT prophylaxis with SCD boots and Lovenox subQ Admission and Anticipated Discharge Date Admission Date: November 01, 2021 Subjective Postop day 1 status post laparoscopic right extended hemicolectomy. Doing well. Denies nausea vomiting. No flatus. Pain controlled with IV Tylenol and Toradol. Physical Exam Physical Exam: NAD, A&O x3 Abdomen: Soft, mild TTP in right side; incisions healing well, no erythema / discharge/Dermabond in place Results & Data ([facility]) Vital Signs (Past 12 Hours) Vital Signs Temp Pulse Resp BP Pulse Ox O2 Del Method O2 Flow Rate 11/02/21 08:15 36.7 C 72 16 129/74 93 Room Air 11/02/21 07:20 Room Air 11/02/21 03:09 37.0 C 70 16 120/71 98 Nasal Cannula 1.5 Laboratory Results 11/02/21 11/02/21 11/02/21 Range/Units 08:14 06:17 06:17 WBC 8.67 (4.8-10.8) K/ul RBC 3.05 L (3.93-5.22) M/uL Hgb 9.1 L (12.0-16.0) g/dl Hct 27.2 L (34.1-44.9) % MCV 89.2 (80.0-100.0) fL MCH 29.8 (25.0-34.0) pg MCHC 33.5 (32.0-36.0) g/dL RDW Std Deviation 50.0 H (36.4-46.3) fL RDW Coeff of Breanna 15.3 H (11.5-14.5) % Plt Count 299 (130-400) K/uL MPV 10.7 (9.4-12.3) fL Immature Gran % (Auto) 0.2 % Neut % (Auto) 68.6 % Lymph % (Auto) 20.2 % [place] % (Auto) 10.4 % Eos % (Auto) 0.1 % Baso % (Auto) 0.5 % Neut # (Auto) 5.95 (1.4-6.5) K/uL Lymph # (Auto) 1.75 (1.2-3.4) K/uL [place] # (Auto) 0.90 H (0.24-0.82) K/uL Eos # (Auto) 0.01 (0-0.50) K/uL Baso # (Auto) 0.04 (0-0.2) K/uL Immature Gran # (Auto) 0.02 (0.00-0.02) K/uL Sodium 137 (136-145) mmol/L Potassium 3.6 (3.5-5.1) mmol/L Chloride 107 (98-107) mmol/L Carbon Dioxide 24 (21-32) mmol/L Anion Gap 6 (3-11) BUN 11 (6-23) mg/dl Creatinine 0.75 (0.6-1.2) mg/dl Est Cr Clr Drug Dosing 60.7 ml/min Est GFR ( Amer) 91.7 ml/min Est GFR (Non-Af Amer) 79.1 ml/min BUN/Creatinine Ratio 14.7 (10-20) Glucose 120 H (70-99(Fasting)) mg/dl POC Glucose 124 H (70-99) mg/dl Estimat Average Glucose mg/dl Hemoglobin A1c (4.5-5.6) % Calcium 8.7 (8.5-10.1) mg/dl Total Bilirubin 0.3 (0.2-1.0) mg/dl AST 11 L (13-39) U/L ALT 11 (7-52) U/L Alkaline Phosphatase 60 (34-104) U/L Total Protein 5.5 L (6.0-8.3) gm/dl Albumin 3.3 L (3.4-5.0) gm/dl Globulin 2.2 L (2.5-4.0) gm/dl Albumin/Globulin Ratio 1.5 (0.9-2) 11/02/21 11/01/21 11/01/21 Range/Units 06:17 20:49 17:19 WBC (4.8-10.8) K/ul RBC (3.93-5.22) M/uL Hgb (12.0-16.0) g/dl Hct (34.1-44.9) % MCV (80.0-100.0) fL MCH (25.0-34.0) pg MCHC (32.0-36.0) g/dL RDW Std Deviation (36.4-46.3) fL RDW Coeff of Breanna (11.5-14.5) % Plt Count (130-400) K/uL MPV (9.4-12.3) fL Immature Gran % (Auto) % Neut % (Auto) % Lymph % (Auto) % [place] % (Auto) % Eos % (Auto) % Baso % (Auto) % Neut # (Auto) (1.4-6.5) K/uL Lymph # (Auto) (1.2-3.4) K/uL [place] # (Auto) (0.24-0.82) K/uL Eos # (Auto) (0-0.50) K/uL Baso # (Auto) (0-0.2) K/uL Immature Gran # (Auto) (0.00-0.02) K/uL Sodium (136-145) mmol/L Potassium (3.5-5.1) mmol/L Chloride (98-107) mmol/L Carbon Dioxide (21-32) mmol/L Anion Gap (3-11) BUN (6-23) mg/dl Creatinine (0.6-1.2) mg/dl Est Cr Clr Drug Dosing ml/min Est GFR ( Amer) ml/min Est GFR (Non-Af Amer) ml/min BUN/Creatinine Ratio (10-20) Glucose (70-99(Fasting)) mg/dl POC Glucose 139 H 148 H (70-99) mg/dl Estimat Average Glucose 137 mg/dl Hemoglobin A1c 6.4 H (4.5-5.6) % Calcium (8.5-10.1) mg/dl Total Bilirubin (0.2-1.0) mg/dl AST (13-39) U/L ALT (7-52) U/L Alkaline Phosphatase (34-104) U/L Total Protein (6.0-8.3) gm/dl Albumin (3.4-5.0) gm/dl Globulin (2.5-4.0) gm/dl Albumin/Globulin Ratio (0.9-2)
[2021-11-02] MEDS: SPIRONOLACTONE 25 MG TAB PO SCH (20:23)
[2021-11-03] MEDS: ENOXAPARIN INJ 30 MG/0.3 ML SYR SQ SCH (06:04)
[2021-11-03] MEDS: ACETAMINOPHEN 1,000 MG/100 ML VIAL IV SCH (06:04)
[2021-11-03 06:58] LABS: Basophils # (auto) 0.06 K/uL (0-0.2); Basophils % (auto) 0.7 %; Eosinophils # (auto) 0.06 K/uL (0-0.50); Eosinophils % (auto) 0.7 %; Hematocrit (blood only) 28.4 % (34.1-44.9); Hemoglobin 9.3 g/dl (12.0-16.0); Immature Granulocytes # (auto) 0.02 K/uL (0.00-0.02); Immature Granulocytes % (auto) 0.2 %; Lymphocytes # (auto) 1.43 K/uL (1.2-3.4); Lymphocytes % (auto) 15.7 %; Mean Corpuscular Hgb Conc 32.7 g/dL (32.0-36.0); Mean Corpuscular Volume 91.6 fL (80.0-100.0); Mean Platelet Volume 10.7 fL (9.4-12.3); Monocytes # (auto) 0.76 K/uL (0.24-0.82); Monocytes % (auto) 8.3 %; Neutrophils # (auto) 6.79 K/uL (1.4-6.5); Neutrophils % (auto) 74.4 %; Platelet Count 293 K/uL (130-400); RDW Standard Deviation 50.9 fL (36.4-46.3); White Blood Count 9.12 K/ul (4.8-10.8)
[2021-11-03 07:17] LABS: Albumin Globulin Ratio 1.4 (0.9-2); Albumin Level 3.2 gm/dl (3.4-5.0); BUN Creatinine Ratio 13.7 (10-20); Bilirubin,Total 0.3 mg/dl (0.2-1.0); Calcium 8.5 mg/dl (8.5-10.1); Creatinine Clr Calc Pharmacy 62.3 ml/min; Est GFR (African American) 94.7 ml/min; Est GFR (Non-African American) 81.7 ml/min; Globulin 2.3 gm/dl (2.5-4.0); Potassium 3.8 mmol/L (3.5-5.1); Total Protein 5.5 gm/dl (6.0-8.3)
[2021-11-03] MEDS ORDERED: oxyCODONE/ACETAMINOPHEN 5mg/325mg TAB PO PRN (07:34)
[2021-11-03] MEDS ORDERED: ACETAMINOPHEN 325 MG TAB PO PRN (07:34)
--- NOTE | 2021-11-03 07:41 | Surgery Progress Note ---
Date of Service November 03, 2021 Assessment & Plan (1) Primary adenocarcinoma of ascending colon: Plan POD #2, doing well passing flatus; advance to full liquids, may advance as tolerated D/C Ofirmev; PO percocet and tylenol; Toradol prn Out of bed, ambulate, aggressive pulmonary toilet DVT prophylaxis with SCD boots and Lovenox subQ Admission and Anticipated Discharge Date Admission Date: November 01, 2021 Subjective Postop day 2 status post laparoscopic right extended hemicolectomy. Doing well. Denies nausea vomiting. positive flatus, no BM yet. tolerating clears. Pain controlled with IV Tylenol and Toradol. Physical Exam Physical Exam: NAD, A&O x3 Abdomen: Soft, mild TTP in right side; incisions healing well, no erythema / discharge/Dermabond in place Results & Data ([facility]) Vital Signs (Past 12 Hours) Vital Signs Temp Pulse Resp BP Pulse Ox O2 Del Method 11/02/21 20:35 37.3 C 87 18 142/79 H 94 Room Air Laboratory Results 11/03/21 11/03/21 11/02/21 Range/Units 06:33 06:33 20:36 WBC 9.12 (4.8-10.8) K/ul RBC 3.10 L (3.93-5.22) M/uL Hgb 9.3 L (12.0-16.0) g/dl Hct 28.4 L (34.1-44.9) % MCV 91.6 (80.0-100.0) fL MCH 30.0 (25.0-34.0) pg MCHC 32.7 (32.0-36.0) g/dL RDW Std Deviation 50.9 H (36.4-46.3) fL RDW Coeff of Breanna 15.0 H (11.5-14.5) % Plt Count 293 (130-400) K/uL MPV 10.7 (9.4-12.3) fL Immature Gran % (Auto) 0.2 % Neut % (Auto) 74.4 % Lymph % (Auto) 15.7 % Davidson % (Auto) 8.3 % Eos % (Auto) 0.7 % Baso % (Auto) 0.7 % Neut # (Auto) 6.79 H (1.4-6.5) K/uL Lymph # (Auto) 1.43 (1.2-3.4) K/uL Davidson # (Auto) 0.76 (0.24-0.82) K/uL Eos # (Auto) 0.06 (0-0.50) K/uL Baso # (Auto) 0.06 (0-0.2) K/uL Immature Gran # (Auto) 0.02 (0.00-0.02) K/uL Sodium 137 (136-145) mmol/L Potassium 3.8 (3.5-5.1) mmol/L Chloride 107 (98-107) mmol/L Carbon Dioxide 25 (21-32) mmol/L Anion Gap 5 (3-11) BUN 10 (6-23) mg/dl Creatinine 0.73 (0.6-1.2) mg/dl Est Cr Clr Drug Dosing 62.3 ml/min Est GFR ( Amer) 94.7 ml/min Est GFR (Non-Af Amer) 81.7 ml/min BUN/Creatinine Ratio 13.7 (10-20) Glucose 118 H (70-99(Fasting)) mg/dl POC Glucose 124 H (70-99) mg/dl Calcium 8.5 (8.5-10.1) mg/dl Total Bilirubin 0.3 (0.2-1.0) mg/dl AST 10 L (13-39) U/L ALT 9 (7-52) U/L Alkaline Phosphatase 67 (34-104) U/L Total Protein 5.5 L (6.0-8.3) gm/dl Albumin 3.2 L (3.4-5.0) gm/dl Globulin 2.3 L (2.5-4.0) gm/dl Albumin/Globulin Ratio 1.4 (0.9-2) 11/02/21 11/02/21 11/02/21 Range/Units 17:08 12:10 08:14 WBC (4.8-10.8) K/ul RBC (3.93-5.22) M/uL Hgb (12.0-16.0) g/dl Hct (34.1-44.9) % MCV (80.0-100.0) fL MCH (25.0-34.0) pg MCHC (32.0-36.0) g/dL RDW Std Deviation (36.4-46.3) fL RDW Coeff of Breanna (11.5-14.5) % Plt Count (130-400) K/uL MPV (9.4-12.3) fL Immature Gran % (Auto) % Neut % (Auto) % Lymph % (Auto) % Davidson % (Auto) % Eos % (Auto) % Baso % (Auto) % Neut # (Auto) (1.4-6.5) K/uL Lymph # (Auto) (1.2-3.4) K/uL Davidson # (Auto) (0.24-0.82) K/uL Eos # (Auto) (0-0.50) K/uL Baso # (Auto) (0-0.2) K/uL Immature Gran # (Auto) (0.00-0.02) K/uL Sodium (136-145) mmol/L Potassium (3.5-5.1) mmol/L Chloride (98-107) mmol/L Carbon Dioxide (21-32) mmol/L Anion Gap (3-11) BUN (6-23) mg/dl Creatinine (0.6-1.2) mg/dl Est Cr Clr Drug Dosing ml/min Est GFR ( Amer) ml/min Est GFR (Non-Af Amer) ml/min BUN/Creatinine Ratio (10-20) Glucose (70-99(Fasting)) mg/dl POC Glucose 114 H 145 H 124 H (70-99) mg/dl Calcium (8.5-10.1) mg/dl Total Bilirubin (0.2-1.0) mg/dl AST (13-39) U/L ALT (7-52) U/L Alkaline Phosphatase (34-104) U/L Total Protein (6.0-8.3) gm/dl Albumin (3.4-5.0) gm/dl Globulin (2.5-4.0) gm/dl Albumin/Globulin Ratio (0.9-2)
[2021-11-03] MEDS: lisinopril 2.5 MG TAB PO SCH (08:39)
[2021-11-03] MEDS: FUROSEMIDE 40 MG TAB PO SCH (08:39)
[2021-11-03] MEDS: FERROUS SULFATE 325 MG TAB PO SCH ×2 (08:39→20:29)
[2021-11-03] MEDS: CYANOCOBALAMIN (B-12) 500 MCG TABLET PO SCH (08:39)
[2021-11-03] MEDS: ATORVASTATIN 40 MG TAB PO SCH (08:39)
[2021-11-03] MEDS: carvediloL 6.25 MG TAB PO SCH ×2 (08:39→20:29)
[2021-11-03] MEDS: ASPIRIN 81 MG ECTAB PO SCH (08:39)
[2021-11-03] MEDS: INSULIN ASPART PER UNIT SC SCH ×4 (09:13→21:42)
--- NOTE | 2021-11-03 15:38 | Hospitalist Progress Note ---
Date of Service November 03, 2021 Assessment & Plan (1) Primary adenocarcinoma of ascending colon: Plan: S/p R hemicolectomy for colon cancer by Dr. Carlton today Pain management, bowel regimen and DVT ppx per the primary team PT/OT consults Follow am CBC to monitor for acute blood loss Clinically much better and denies any significant symptoms Electrolytes and kidney function are unremarkable Anemia pt with anemia at baseline baseline hgb 10-11 hgb 9.1 today minimal blood loss during surgery, 20ml slightly worsened anemia likely dilutional chronic anemia likely in setting of colon mass Hemoglobin remained stable at 9.3 as of 11/03/2021 (2) Non-ischemic cardiomyopathy: Plan: No acute cardiac symptoms (3) Hypercholesteremia: (4) Aortic regurgitation: (5) ICD (implantable cardioverter-defibrillator) in place: (6) Left bundle branch block: (7) HTN (hypertension): Plan: Last echo was reviewed from 04/2021 showing LV wall thickness, right ventricular pacemaker, LV EF 55-59%, grade 1 diastolic dysfunction, anortic valve mildly calcified, moderate aortic insufficiency Pacemaker/ICD in place with approximately 3-4 months of battery life left as per cardiology Continue carvedilol, lisinopril, spironolactone, furosemide, ASA Cont statin K 3.6 today, will give 40meq KCL pt euvolemic, monitor daily weights Blood pressure remains stable at 130/72 (8) Diabetes: Plan: Hold metformin 1000 mg BID while inpatient, cover with ISS with accuchecks achs A1C 6.4, BSG 124, stable, monitor DVT ppx: Lovenox subq CODE: Full code Dispo: From home, discharge per the primary team Remains medically stable Admission and Anticipated Discharge Date Admission Date: November 01, 2021 Subjective Patient was seen and examined in room 316. Follow-up right hemicolectomy secondary to adenocarcinoma. She feels well this morning. She had Crooks catheter removed. Denies abdominal pain. She denies fever, chills, sweats, lightheadedness, chest pain, shortness breath, cough, nausea, vomiting, abdominal pain. She has not yet urinated since catheter has been removed. She does admit to, "bowels rumbling," but has not yet passed flatus. Tolerating liquid diet. 11/03/2021 The patient was seen and examined in medical floor She is out of bed on a chair and is status post right laparoscopic hemicolectomy Denies any significant abdominal pain and has been tolerating diet Review of Systems Review of Systems: All systems reviewed and are unremarkable except as noted below Physical Exam Physical Exam: Gen: WD/WN, NAD, A&O x3, F, lying in bd HEENT: Normocephalic, atraumatic, conjunctivae moist, sclerae anicteric, mucous membranes moist. Lung: Clear to Auscultation bilaterally, no wheezes/rales/rhonchi Heart: Regular rate, regular rhythm, 1/6 AGNES cardiac apex, no rubs, or gallops Abdomen: Soft, NT, ND +BS tinkling x 4, abd incision x 4 intact, no erythema Extremities: No edema Skin: Warm, no rash, negative turgor. Results & Data Results & Data ([facility]) Vital Signs (Past 12 Hours) Vital Signs Temp Pulse Resp BP Pulse Ox O2 Del Method 11/03/21 14:54 37.1 C 75 17 130/72 95 Room Air 11/03/21 07:55 36.7 C 68 16 132/76 93 Room Air Laboratory Results Short CBC 11/03/21 Range/Units 06:33 WBC 9.12 (4.8-10.8) K/ul Hgb 9.3 L (12.0-16.0) g/dl Hct 28.4 L (34.1-44.9) % Plt Count 293 (130-400) K/uL BMP 11/03/21 06:33 Sodium 137 Potassium 3.8 Chloride 107 Carbon Dioxide 25 BUN 10 Creatinine 0.73 Glucose 118 H Calcium 8.5 Liver Function 11/03/21 Range/Units 06:33 Total Bilirubin 0.3 (0.2-1.0) mg/dl AST 10 L (13-39) U/L ALT 9 (7-52) U/L Alkaline Phosphatase 67 (34-104) U/L Albumin 3.2 L (3.4-5.0) gm/dl Medications Administered Current Inpatient Medications Acetaminophen (Acetaminophen 325 Mg Tab) 650 mg PO Q4H PRN PRN Reason: Pain Stop: 12/03/21 07:33 Aspirin (Aspirin 81 Mg Ectab) 81 mg PO QAM ARCHIE Stop: 12/02/21 08:59 Last Admin: 11/03/21 08:39 Dose: 81 mg Atorvastatin Calcium (Atorvastatin 40 Mg Tab) 40 mg PO QAM [facility] Stop: 12/02/21 08:59 Last Admin: 11/03/21 08:39 Dose: 40 mg Carvedilol (Carvedilol 6.25 Mg Tab) 6.25 mg PO BID [facility], [facility]1983 Stop: 12/01/21 20:59 Last Admin: 11/03/21 08:39 Dose: 6.25 mg Cyanocobalamin (Cyanocobalamin (B-12) 500 Mcg Tablet) 1,000 mcg PO QAM [facility], [facility]1983 Stop: 12/02/21 08:59 Last Admin: 11/03/21 08:39 Dose: 1,000 mcg Dextrose (Dextrose 50% 50 Ml Syringe) 25 - 50 ml IV UD PRN; Protocol PRN Reason: Hypoglycemia Protocol Stop: 12/01/21 14:52 Enoxaparin Sodium (Enoxaparin Inj 30 Mg/0.3 Ml Syr) 30 mg SQ Q24H ARCHEI Stop: 12/02/21 06:59 Last Admin: 11/03/21 06:04 Dose: 30 mg Ferrous Sulfate (Ferrous Sulfate 325 Mg Tab) 325 mg PO BID [facility]1983 Stop: 12/01/21 20:59 Last Admin: 11/03/21 08:39 Dose: 325 mg Furosemide (Furosemide 40 Mg Tab) [facility] Stop: 12/02/21 08:59 Last Admin: 11/03/21 08:39 Dose: 40 mg Glucagon (Glucagon For Inj 1 Mg Vial) 1 mg SQ UD PRN; Protocol PRN Reason: Hypoglycemia Protocol Stop: 12/01/21 14:52 Glucose (Glucose 40% Gel 15 Gm Tube) 15 - 30 gm PO UD PRN; Protocol PRN Reason: Hypoglycemia Protocol Stop: 12/01/21 14:52 Glucose (Glucose 10 Tab/Tube) 4 - 8 tab PO UD PRN; Protocol PRN Reason: Hypoglycemia Treatment Stop: 12/01/21 14:52 Promethazine HCl 12.5 mg/ (Sodium Chloride) 50.5 mls @ 204 mls/hr IV Q6H PRN PRN Reason: Nausea And Vomiting Stop: 12/01/21 11:12 Insulin Aspart (Insulin Aspart Per Unit) 0 units SC ACHS [facility], [facility] Stop: 12/01/21 16:29 Last Admin: 11/03/21 12:59 Dose: 3 units Ketorolac Tromethamine (Ketorolac Tromethamine 15 Mg/Ml Vial) 15 mg IV Q6H PRN PRN Reason: Pain 1-6 & Pre PT Stop: 11/06/21 11:12 Lisinopril (Lisinopril 2.5 Mg Tab) 2.5 mg PO QAM [facility]1983 Stop: 12/02/21 08:59 Last Admin: 11/03/21 08:39 Dose: 2.5 mg Miscellaneous (Carbohydrates For Hypoglycemia ) 15 - 30 gm PO UD PRN PRN Reason: Hypoglycemia Protocol Stop: 12/01/21 14:52 Morphine Sulfate (Morphine Sulfate 2 Mg/Ml Carp) 2 mg IV Q3H PRN PRN Reason: pain 7-10 or pre-PT Stop: 11/15/21 11:12 Ondansetron HCl (Ondansetron Inj 2 Mg/Ml 2 Ml Vial) 4 mg IV Q4H PRN PRN Reason: Nausea And Vomiting Stop: 12/01/21 11:12 Oxycodone/Acetaminophen (Oxycodone/Acetaminophen 5mg/325mg Tab) 1 tab PO Q4H PRN PRN Reason: Pain Stop: 11/17/21 07:33 Spironolactone (Spironolactone 25 Mg Tab) 25 mg PO HS [facility], [facility]1983 Stop: 12/01/21 20:59 Last Admin: 11/02/21 20:23 Dose: 25 mg
[2021-11-03] MEDS: SPIRONOLACTONE 25 MG TAB PO SCH (20:29)
[2021-11-04] MEDS: ENOXAPARIN INJ 30 MG/0.3 ML SYR SQ SCH (06:12)
[2021-11-04 06:41] LABS: Basophils # (auto) 0.04 K/uL (0-0.2); Basophils % (auto) 0.4 %; Eosinophils # (auto) 0.15 K/uL (0-0.50); Eosinophils % (auto) 1.6 %; Hematocrit (blood only) 29.3 % (34.1-44.9); Hemoglobin 9.6 g/dl (12.0-16.0); Immature Granulocytes # (auto) 0.02 K/uL (0.00-0.02); Immature Granulocytes % (auto) 0.2 %; Lymphocytes # (auto) 1.56 K/uL (1.2-3.4); Mean Corpuscular Hemoglobin 29.7 pg (25.0-34.0); Mean Corpuscular Hgb Conc 32.8 g/dL (32.0-36.0); Mean Corpuscular Volume 90.7 fL (80.0-100.0); Mean Platelet Volume 10.7 fL (9.4-12.3); Monocytes # (auto) 0.62 K/uL (0.24-0.82); Monocytes % (auto) 6.8 %; Neutrophils # (auto) 6.79 K/uL (1.4-6.5); Platelet Count 328 K/uL (130-400); RDW Coefficient of Variation 15.2 % (11.5-14.5); RDW Standard Deviation 50.1 fL (36.4-46.3); Red Blood Count 3.23 M/uL (3.93-5.22); White Blood Count 9.18 K/ul (4.8-10.8)
[2021-11-04 07:01] LABS: Albumin Globulin Ratio 1.3 (0.9-2); Albumin Level 3.3 gm/dl (3.4-5.0); BUN Creatinine Ratio 15.3 (10-20); Bilirubin,Total 0.2 mg/dl (0.2-1.0); Calcium 8.5 mg/dl (8.5-10.1); Creatinine Clr Calc Pharmacy 63.2 ml/min; Est GFR (African American) 96.3 ml/min; Est GFR (Non-African American) 83.1 ml/min; Globulin 2.6 gm/dl (2.5-4.0); Potassium 3.5 mmol/L (3.5-5.1); Total Protein 5.9 gm/dl (6.0-8.3)
[2021-11-04] MEDS: ATORVASTATIN 40 MG TAB PO SCH (08:48)
[2021-11-04] MEDS: carvediloL 6.25 MG TAB PO SCH (08:48)
[2021-11-04] MEDS: FERROUS SULFATE 325 MG TAB PO SCH (08:48)
[2021-11-04] MEDS: CYANOCOBALAMIN (B-12) 500 MCG TABLET PO SCH (08:49)
[2021-11-04] MEDS: ASPIRIN 81 MG ECTAB PO SCH (08:49)
[2021-11-04] MEDS: lisinopril 2.5 MG TAB PO SCH (08:49)
[2021-11-04] MEDS: FUROSEMIDE 40 MG TAB PO SCH (08:49)
[2021-11-04] MEDS: INSULIN ASPART PER UNIT SC SCH ×2 (08:53→12:40)
--- NOTE | 2021-11-04 09:42 | Discharge Summary ---
Date of Service November 04, 2021 Admission HPI Per Admitting Provider 71-year-old woman with hepatic flexure adenocarcinoma noted on colonoscopy. She has an extensive cardiac history and has a pacemaker. She was seen cardiology and has been cleared for surgery. Principal Diagnosis adenocarcinoma of ascending colon Discharge Exam NAD, A&O x3 Abdomen: Soft, mild TTP in right side; incisions healing well, no erythema / discharge/Dermabond in place Constitutional WD/WN, vitals as above Neck trachea midline, no thyromegaly Respiratory normal respiratory effort, lungs clear to auscultation Cardiovascular RRR, no murmur, no edema Musculoskeletal no cyanosis or clubbing, extremities motor strength 5/5 Skin no rashes, warm and dry Psychiatric A+Ox3, euthymic affect Discharge Data Allergies Allergy/AdvReac Type Severity Reaction Status Date / Time No Known Allergies Allergy Unknown Verified 11/01/21 06:04 Consultations 11/01/21 11:13 Consult Hospitalist Routine Procedures Performed Operation Date: 11/01/21 07:15 Actual Procedures p Right Laparoscopic Hemicolectomy(Right) - Lc Carlton MD Hospital Course (1) Primary adenocarcinoma of ascending colon: 71-year-old woman is admitted to the OR and underwent laparoscopic right extended hemicolectomy for colon cancer. The details of this surgery are dictated in a separate operative note. Postoperatively she was transferred in stable condition to the PACU and subsequently to the floor. DVT prophylaxis was maintained with SCD boots and subcutaneous Lovenox. Her diet was slowly advanced as tolerated once she began passing flatus. Pain control with IV Toradol and Tylenol as well as oral Percocet. Early ambulation and aggressive pulmonary toilet was encouraged. She began passing flatus and had a bowel movement on postop day 2. By postoperative day 3, she was tolerating a regular diet, not requiring any IV pain medication, and was otherwise doing well. She was discharged to home in stable condition. She will follow-up in clinic in 2 weeks. Total Time Total Time Spent Total Time Spent (In Minutes): 30 minutes Discharge Plan Discharge Items Patient Disposition: Home - Self-Care Reason For Visit: Primary Adenocarcinoma of Adcending Colon Discharge Diagnosis: Primary adenocarcinoma of ascending colon Activity: Per Instructions section Lifting: No more than 25 pounds Sexual Activity: Wait until after follow-up appointment Exercise/Sports: Wait until after follow-up appointment Non-emergency contact: Surgeon Call non-emergency contact if: you have any medication questions, your symptoms worsen, your pain is not controlled, your pain is worsening, your pain is unusual for you, your temperature is above 101.5, your wound has increased redness, your wound has increased drainage and your wound pain has increased Follow-up/Referrals: Lc Carlton MD [Physician] - Archie Padgett DO [Primary Care Provider] - Diet: Regular Addtl Attending Provider Instructions: Post-Surgical ~Discharge Instructions Activity Recommendations: - lifting limitation: (20 pounds for 2 weeks), - exercise/sex/sports limit: (nonstrenuous for 2 weeks), - driving or machine use limit: (none for 1 week), - Shower/bathe limit: (may shower beginning tomorrow) Diet: - Resume previous diet SPECIAL CARE INSTRUCTIONS: - May shower in 24 hours. Let water run over area and pat dry. - Leave Dermabond in place. - Call the surgeon's office with any questions or concerns - - (ex. temperature higher than 101 degrees F, excessive bleeding or pain). MEDICATIONS: - Resume previous medications unless instructed otherwise by your surgeon. - Ibuprofen 600 mg every 6 hours with food - Percocet 1 every 4 hours, as needed for pain FOLLOW UP VISIT: - If not already scheduled, please call the office to schedule a two week follow-up appointment. Office number Pending Studies at Discharge: No Stand-Alone Forms: [facility], Smoking Cessation Medications and DC Order Prescriptions: New oxycodone-acetaminophen [Percocet] 5-325 mg tablet 1 tab PO Q6H PRN (Reason: pain) Qty: 12 0RF Continued furosemide 40 mg Tablet 40 mg PO QAM atorvastatin 40 mg Tablet 40 mg PO QAM carvedilol 6.25 mg Tablet 6.25 mg PO BID alendronate 70 mg Tablet 70 mg PO WK Label Comments: FRIDAYS cyanocobalamin (vitamin B-12) [Vitamin B-12] 1,000 mcg Tablet 1,000 mcg PO QAM aspirin 81 mg Tablet,Delayed Release (Dr/Ec) 81 mg PO QAM spironolactone 25 mg Tablet 25 mg PO HS metformin 1,000 mg Tablet 1,000 mg PO BID lisinopril 2.5 mg Tablet 2.5 mg PO QAM ferrous sulfate [Iron (ferrous sulfate)] 325 mg (65 mg iron) Tablet 325 mg PO BID Discharge Orders: Discharge Order (Routine); Ordered 11/04/21 Ordered By: Lc Peoples/Other Patient Handouts: Managing Type 2 Diabetes Admission Data Admit Date/Time: 11/01/21 10:04 Attending Provider: Lc Carlton Admit Provider: Lc Carlton Primary Care Provider: Archie Padgett Other Providers: Rochelle Delgado ; Bing Guerrero I. ; Sravanthi Olvera ; Alena Vargas ; Ruthie Davis ; Alla Bob ; Na Worrell ; Manuel Olivas ; Cameron Buenrostro ; Jorge Gupta ; Guera Francisco ; Luis Burt ; Archana José ; Katie Powers ; Shaw James ; Alisson Anaya ; Arleen Byrd ; Genny Quarles ; Toshia Cheng I. ; Peter Ferraro ; Sidney Rao ; Trupti Cedillo ; Jordi Donis ; Jalil Baires ; Jonathan Brasher ; John Morales ; Oscar Corcoran
--- NOTE | 2021-11-04 11:14 | Hospitalist Progress Note ---
Date of Service November 04, 2021 Assessment & Plan (1) Primary adenocarcinoma of ascending colon: Plan: S/p R hemicolectomy for colon cancer by Dr. Carlton today Pain management, bowel regimen and DVT ppx per the primary team PT/OT consults Follow am CBC to monitor for acute blood loss Clinically much better and denies any significant symptoms Electrolytes and kidney function are unremarkable Anemia pt with anemia at baseline baseline hgb 10-11 hgb 9.6 today minimal blood loss during surgery, 20ml slightly worsened anemia likely dilutional chronic anemia likely in setting of colon mass Hemoglobin remained stable at 9.3 as of 11/03/2021 (2) Non-ischemic cardiomyopathy: Plan: No acute cardiac symptoms (3) Hypercholesteremia: (4) Aortic regurgitation: (5) ICD (implantable cardioverter-defibrillator) in place: (6) Left bundle branch block: (7) HTN (hypertension): Plan: Last echo was reviewed from 04/2021 showing LV wall thickness, right ventricular pacemaker, LV EF 55-59%, grade 1 diastolic dysfunction, anortic valve mildly calcified, moderate aortic insufficiency Pacemaker/ICD in place with approximately 3-4 months of battery life left as per cardiology Continue carvedilol, lisinopril, spironolactone, furosemide, ASA Cont statin K 3.6 today, will give 40meq KCL pt euvolemic, monitor daily weights Blood pressure remains stable at 117/74 (8) Diabetes: Plan: Hold metformin 1000 mg BID while inpatient, cover with ISS with accuchecks achs A1C 6.4, BSG 124, stable, monitor DVT ppx: Lovenox subq CODE: Full code Dispo: From home, discharge per the primary team Remains medically stable Admission and Anticipated Discharge Date Admission Date: November 01, 2021 Supervising Physician Co-Signing Physician Notes Attending addendum: The patient was seen and examined in medical floor She remains medically stable without any significant symptoms and will be discharged home by her primary today On examination Sitting on a chair without any distress Hemodynamically stable Abdomen-nontender and bowel sound present Extremities-negative for any edema Her labs, medications reviewed Status post right hemicolectomy for CT of the colon Medically stable Agree with assessment and plan as outlined above by HUONG Zaldivar Dr Subjective Patient was seen and examined in room 316 in follow-up right hemicolectomy secondary to adenocarcinoma. Patient is feeling well today. Denies any abdominal pain, nausea or vomiting. Tolerating diet without issue. Passing flatus and had a bowel movement. Denies any fever, chills, lightheadedness, chest pain, shortness of breath, dysuria or diarrhea. Review of Systems Review of Systems: At least ten systems reviewed and negative except as noted in the HPI. Physical Exam Physical Exam: Gen: WD/WN, NAD, A&O x3, sitting in bedside chair HEENT: Normocephalic, atraumatic, conjunctivae moist, sclerae anicteric, mucous membranes moist. Lung: Clear to Auscultation bilaterally, no wheezes/rales/rhonchi Heart: Regular rate, regular rhythm, 1/6 AGNES cardiac apex, no rubs, or gallops Abdomen: Soft, NT, ND +BS x 4, abd incision x 4 intact, no erythema Extremities: No edema Skin: Warm, no rash, negative turgor. Results & Data Results & Data ([facility]) Vital Signs (Past 12 Hours) Vital Signs Temp Pulse Resp BP Pulse Ox O2 Del Method 11/04/21 07:37 37.3 C 84 16 117/74 92 Room Air Laboratory Results Short CBC 11/04/21 Range/Units 05:52 WBC 9.18 (4.8-10.8) K/ul Hgb 9.6 L (12.0-16.0) g/dl Hct 29.3 L (34.1-44.9) % Plt Count 328 (130-400) K/uL BMP 11/04/21 05:52 Sodium 138 Potassium 3.5 Chloride 105 Carbon Dioxide 25 BUN 11 Creatinine 0.72 Glucose 127 H Calcium 8.5 Liver Function 11/04/21 Range/Units 05:52 Total Bilirubin 0.2 (0.2-1.0) mg/dl AST 10 L (13-39) U/L ALT 10 (7-52) U/L Alkaline Phosphatase 71 (34-104) U/L Albumin 3.3 L (3.4-5.0) gm/dl
== END 2021-11-04 13:44 | disposition home or self-care (01) | DRG 330 ==
LOC: ASU 05:45 → PACUINP 10:04 → 3E 14:02
DX: Z79.84 Long term (current) use of oral hypoglycemic drugs; C18.2 Malignant neoplasm of ascending colon; I42.8 Other cardiomyopathies; Z95.810 Presence of automatic (implantable) cardiac defibrillator; C18.3 Malignant neoplasm of hepatic flexure; E11.9 Type 2 diabetes mellitus without complications; I35.1 Nonrheumatic aortic (valve) insufficiency; Z79.82 Long term (current) use of aspirin; F17.210 Nicotine dependence, cigarettes, uncomplicated